=== PATIENT | female | born 1985 | race Hispanic/Latino ===

== ENCOUNTER 2020-11-04 15:51 | Day surgery (SDC) | payer BC ==
[~2020-11-04 15:51] MED LIST: Dexamethasone 20 MG/5 ML VIAL ONE; Glycopyrrolate 0.2 MG/ML 5 ML SYRINGE ONE; Ketorolac Tromethamine 30 MG/ML VIAL ONE; Lidocaine 1% PF 5 ML VIAL ONE; Ondansetron PF 4 MG/2 ML Vial ONE; PHENYLEPHRINE-NS 100 MCG/ML 10 ML SYRINGE ONE; PROPOFOL 200 MG/20 ML VIAL ONE; Rocuronium Bromide 10 MG/ML (10ML VIAL) ONE
[2020-11-04] MEDS ORDERED: EPINEPHrine 1 MG/ML AMP ONE (16:26)
[2020-11-04] MEDS ORDERED: Bupivacaine PF 0.5% 30 ML VIAL ONE (16:26)
--- NOTE | 2020-11-04 16:28 | HP ---
HISTORY OF PRESENT ILLNESS: A 35-year-old female, who was being evaluated for PVCs with an EP study by Dr. Hanson. The patient states that her source of the PVCs was felt to be too close to the aorta to safely treat and procedure was aborted. She then developed some discomfort in the right lower quadrant related to the puncture site and a CT scan showed a pseudoaneurysm with some bleeding right at the inguinal ligament with blood extending primarily over the anterior fascial layers. She has had stable vital signs. MEDICATIONS: Her medications include; 1. Flecainide. 2. Metoprolol. 3. Magnesium sulfate. 4. BuSpar. 5. Wellbutrin. Additional medication, levothyroxine. PAST MEDICAL HISTORY: Her past medical history includes depression, PVCs and perhaps another arrhythmia, although I am not aware of that. PAST SURGICAL HISTORY: Her past surgical history includes breast augmentation, abdominoplasty, umbilical hernia repair, bunion surgery, tonsillectomy, and ablation. ALLERGIES: NONE KNOWN. PHYSICAL EXAMINATION: VITAL SIGNS: Heart rate 80, blood pressure 129 systolic. GENERAL: She is alert, cooperative lady, in mild distress due to her discomfort. LUNGS: Clear to auscultation. CARDIAC: Regular rate and rhythm. No ectopy. ABDOMEN: Full with diffuse tenderness in the right lower quadrant with no ecchymoses. She does have a tattoo. EXTREMITIES: She has a dressing on the right groin and a palpable pulse in each feet. She has no peripheral edema. PLAN: At this time is for repair of pseudoaneurysm. Possible discharge later this evening. Job ID: [id number]
[2020-11-04] MEDS ORDERED: HYDROcodone/Acetaminophen 5/325 mg Tablet PO PRN ×2 (17:00)
[2020-11-04] MEDS ORDERED: Ibuprofen 800 MG TAB PO PRN (17:00)
[2020-11-04] MEDS ORDERED: Fentanyl 100 MCG/2 ML VIAL ONE ×2 (17:17→17:54)
[2020-11-04] MEDS ORDERED: HYDROcodone/Acetaminophen 5/325 mg Tablet ONE ×2 (18:39→19:02)
[2020-11-04] MEDS ORDERED: Ondansetron ODT 8 MG TAB ONE (18:41)
--- NOTE | 2020-11-05 06:18 | OP ---
DATE OF PROCEDURE: 11/04/2020 PREOPERATIVE DIAGNOSIS: Right femoral artery pseudoaneurysm. POSTOPERATIVE DIAGNOSIS: Right femoral artery pseudoaneurysm. PROCEDURE PERFORMED: Repair of right femoral artery pseudoaneurysm. ANESTHESIA: General. ESTIMATED BLOOD LOSS: 100. DESCRIPTION OF PROCEDURE: After adequate anesthesia had been obtained, a transverse incision was made in the right inguinal region after prepping and draping. It was carried down to the level of the inguinal ligament, where active arterial bleeding was encountered. A Kittner was used to control it, while clamp was placed on the common femoral artery just at the inguinal ligament and then distally. There was some bleeding still through the puncture site due to a side branch. However, it allowed the placement accurately of a [id number] 5-0 Prolene suture. This was tied and it should be noted that 5000 of heparin was given during this. Following completion of this, a small pursestring suture of 5-0 was added and there was a good pulse distally with a good Doppler signal. Vessel was rather small and this was noted both proximal and distal to the puncture site. The wound was then closed in layers after infiltrating with 0.5% Marcaine with epinephrine to assist with pain control. Job ID: [id number]
== END 2020-11-04 19:35 | disposition home or self-care (01) ==
LOC: SDC 15:51
PROVIDERS: ATTEND Thoracic Surgery (Cardiothoracic Vascular Surgery)
PROC: 04QK0ZZ Repair Right Femoral Artery, Open Approach (ICD-10-PCS; principal; 2020-11-04)
DX: I72.4 Aneurysm of artery of lower extremity (principal); F32.9 Major depressive disorder, single episode, unspecified; Z79.899 Other long term (current) drug therapy
CPT/HCPCS: J0171; J0690; J1100; J1885; J2405; J2704; J3010; Q0162; S0020

== ENCOUNTER 2024-11-26 12:07 | Outpatient (CLI) | payer BC | END 2024-11-26 12:08 | disposition home or self-care (01) | LOC: BICMAMMO 12:07 | PROVIDERS: ATTEND Nurse Practitioner Family | DX: Z12.31 Encounter for screening mammogram for malignant neoplasm of breast (principal); Z80.3 Family history of malignant neoplasm of breast; Z98.82 Breast implant status | CPT/HCPCS: 77063; 77067 ==